=== PATIENT | female | born 1960 | race Caucasian/White ===

== ENCOUNTER → 2019-02-25 | Outpatient (CLI) | payer OTHER ==
--- NOTE | 2019-03-05 14:36 | REPMRS ---
Patient History The patient states she has not had a clinical breast exam in over a year. Patient is postmenopausal. Family history of colorectal cancer at age 56 in mother. Taking estrogen for 2 years. Taking progesterone for 2 years. 3D TOMOSYNTHESIS WAS PERFORMED. [facility] lifetime risk for breast cancer is 8.7%. Digital Woman Screen Mammo: February 25, 2019 - Exam #: [id number] Bilateral CC and MLO view(s) were taken. Technologist: Millie Peng, Technologist FINDINGS: There are scattered fibroglandular densities. There has been no change in the appearance of the mammogram from the prior studies. There is a mild amount of residual fibroglandular tissue which is fairly symmetric. There is no interval development of dominant mass, architectural distortion, or clustered microcalcification suggestive of malignancy. Assessment: BI-RADS/ACR category 1 mammogram. Negative Mammogram. Recommendation Routine screening mammogram in 1 year (for women over age 40). This mammogram was interpreted with the aid of an FDA-approved computer-aided dectection system. Electronically Signed By: Jacinto Jackson MD 03/05/19 [id number]
== END ==
LOC: M WHC 14:38
PROVIDERS: ATTEND Physician Assistant Medical
DX: Z12.31 Encounter for screening mammogram for malignant neoplasm of breast (principal); Z78.0 Asymptomatic menopausal state; Z80.0 Family history of malignant neoplasm of digestive organs; Z92.23 Personal history of estrogen therapy; Z92.29 Personal history of other drug therapy

== ENCOUNTER 2019-04-24 10:20 | Day surgery (SDC) | payer OTHER ==
[~2019-04-24] VITALS: Ht 167.6 cm; Wt 78.0 kg
[~2019-04-24 10:20] MED LIST: ASPI81TA85 PO; ATOR1TAB21 PO; D 101000 PO; HYDR25TAB PO; IBUP-1114 PO; LEXA1TAB2 PO; LISI40TA PO; MAGN400T3 PO; NS 1,000 ML IV SCH; OMEP40CA97 PO; PREM0.9T PO; PROG1CAP9 PO; PROPOFOL 500 MG/50 ML VIAL As Ordered ONE; PROV108A INH; THYR60TA PO; TOPI25CA3 PO; VITA100T39 PO; [UNRECOGNIZED DRUG - OTHER]; fentaNYL 100 MCG/2 ML INJECTION (J3010) As Ordered ONE
[2019-04-24] MEDS ORDERED: LIDOCAINE 2% INJ 100 MG/5 ML SDV (FOR ANES.) As Ordered ONE (10:23)
[2019-04-24] MEDS ORDERED: ePHEDrine SULFATE 25 MG/5 ML(5MG/ML) SYRINGE As Ordered ONE (11:21)
--- NOTE | 2019-04-24 11:27 | ROOR ---
Patient Name: Joceline Gonzalez Procedure Date: 04/24/2019 11:08 AM Date of : 1960 Age: 59 Room: [facility] Gender: Female Note Status: Finalized Procedure: Upper Endoscopy + Biopsies Indications: Heartburn, Exclusion of Laureano's esophagus Providers: David Grant MD Referring MD: [facility], Admin. Requesting Provider: Medicines: Monitored Anesthesia Care Complications: No immediate complications. Procedure: Pre-Anesthesia Assessment: - The heart rate, respiratory rate, oxygen saturations, blood pressure, adequacy of pulmonary ventilation, and response to care were monitored throughout the procedure. The Endoscope was introduced through the mouth, and advanced to the second part of duodenum. The upper GI endoscopy was accomplished without difficulty. The patient tolerated the procedure well. Findings: The Z-line was regular and was found 38 cm from the incisors. Multiple biopsies were obtained with cold forceps for evaluation to rule out Laureano's Esophagus randomly at the gastroesophageal junction. Localized mildly erythematous mucosa was found in the gastric antrum. Biopsies were taken with a cold forceps for Helicobacter pylori testing. The exam of the duodenum was otherwise normal. Impression: - Z-line regular, 38 cm from the incisors. - Erythematous mucosa in the antrum. Biopsied. - Multiple biopsies were obtained at the gastroesophageal junction. - The examination was otherwise normal. Recommendation: - Patient has a contact number available for emergencies. The signs and symptoms of potential delayed complications were discussed with the patient. Return to normal activities tomorrow. Written discharge instructions were provided to the patient. - High fiber diet. - Discharge patient to home. - Continue present medications. - Await pathology results. - Telephone GI clinic for pathology results in 1 week. - Return to referring physician. - The findings and recommendations were discussed with the patient's family. David Grant MD David Grant MD 04/24/2019 11:27:03 AM Electronically signed by David Grant MD Number of Addenda: 0 Note Initiated On: 04/24/2019 11:08 AM Estimated Blood Loss: Estimated blood loss: none.
--- NOTE | 2019-04-24 11:44 | ROOR ---
Patient Name: Joceline Gonzalez Procedure Date: 04/24/2019 11:09 AM Date of : 1960 Age: 59 Room: [facility] Gender: Female Note Status: Finalized Procedure: Total Colonoscopy to Cecum Indications: Colon cancer screening in patient at increased risk: Colorectal cancer in mother Providers: David Grant MD Referring MD: [facility] [place], Admin. Requesting Provider: Medicines: Monitored Anesthesia Care Complications: No immediate complications. Procedure: Pre-Anesthesia Assessment: - The heart rate, respiratory rate, oxygen saturations, blood pressure, adequacy of pulmonary ventilation, and response to care were monitored throughout the procedure. The Colonoscope was introduced through the anus and advanced to the cecum, identified by appendiceal orifice and ileocecal valve. The colonoscopy was performed without difficulty. The patient tolerated the procedure well. The quality of the bowel preparation was excellent. Findings: The perianal and digital rectal examinations were normal. Non-bleeding internal hemorrhoids were found during retroflexion. The hemorrhoids were small and Grade I (internal hemorrhoids that do not prolapse). No other significant abnormalities were identified in a careful examination of the remainder of the colon. The exam was otherwise without abnormality on direct and retroflexion views. Impression: - Non-bleeding internal hemorrhoids. - The examination was otherwise normal on direct and retroflexion views. - No specimens collected. - The exam was otherwise normal to the cecum. Recommendation: - Patient has a contact number available for emergencies. The signs and symptoms of potential delayed complications were discussed with the patient. Return to normal activities tomorrow. Written discharge instructions were provided to the patient. - High fiber diet. - Discharge patient to home. - Continue present medications. - Repeat colonoscopy in 5 years for screening purposes. - Return to referring physician. - The findings and recommendations were discussed with the patient's family. David Grant MD David Grant MD 04/24/2019 11:44:10 AM Electronically signed by David Grant MD Number of Addenda: 0 Note Initiated On: 04/24/2019 11:09 AM Estimated Blood Loss: Estimated blood loss: none.
[2019-04-24 12:05] VITALS: BP 121/77
== END 2019-04-24 12:24 | disposition home or self-care (01) ==
LOC: M OPP 10:20
PROVIDERS: ATTEND Internal Medicine Gastroenterology
DX: Z12.11 Encounter for screening for malignant neoplasm of colon (principal); Z80.0 Family history of malignant neoplasm of digestive organs; K64.0 First degree hemorrhoids; K31.89 Other diseases of stomach and duodenum; K21.9 Gastro-esophageal reflux disease without esophagitis; R12 Heartburn; G47.30 Sleep apnea, unspecified; Z79.82 Long term (current) use of aspirin; Z79.899 Other long term (current) drug therapy
CPT/HCPCS: 43239; 45378; 88305; J3010

== ENCOUNTER → 2019-05-05 | Outpatient (CLI) | payer MEDICARE, OTHER ==
[~2019-05-05] MED LIST changes: -NS 1,000 ML IV SCH; -PROPOFOL 500 MG/50 ML VIAL As Ordered ONE; -fentaNYL 100 MCG/2 ML INJECTION (J3010) As Ordered ONE
--- NOTE | 2019-05-05 10:10 | REP ---
Clinical: Neck pain . Technique: AP, lateral, flexion/extension, bilateral oblique, and open-mouth views. Findings: Alignment and lordosis is maintained. There is no evidence for acute fracture / compression injury or subluxation. Mild generalized age-related changes are appreciated. Oblique views demonstrate patent neural foramen. Open mouth view demonstrates normal C1-C2 articulation and odontoid process. Impression: Normal age-appropriate cervical spine series. Electronically Signed by Chang Simon MD 05/05/2019 10:01 A
== END ==
LOC: M WUC 09:47
PROVIDERS: ATTEND Chiropractor
DX: M54.2 Cervicalgia (principal)